=== PATIENT | female | born 1990 | race Caucasian/White ===

== ENCOUNTER 2021-07-19 17:32 | Observation (INO) | payer MEDICAID ==
[~2021-07-19] VITALS: Ht 165.1 cm; Wt 68.0 kg
[2021-07-19 17:37] VITALS: BP 155/91
[2021-07-19 18:07] LABS: APPEARANCE,URINE Clear (CLEAR); BILIRUBIN,URINE Negative (NEGATIVE); COLOR,URINE Yellow (YELLOW); GLUCOSE, URINE (UA) Negative (NEGATIVE); KETONES,URINE 40 mg/dL (NEGATIVE); LEUKOCYTE ESTERASE ,URINE Trace (NEGATIVE); NITRATE,URINE Negative (NEGATIVE); OCCULT BLOOD,URINE Negative (NEGATIVE); PH,URINE 5.5 (5.0-8.0); PROTEIN,URINE Negative (NEGATIVE); UROBILINOGEN,URINE 0.2 mg/dL (0.2-1.0)
[2021-07-19 18:35] LABS: BACTERIA,URINE Few /HPF (None Seen); RBC,URINE 0-1 /HPF (0-1); SQUAMOUS EPITHELIAL CELL,UR Rare /HPF (0-2)
[2021-07-19] MEDS ORDERED: SIMETHICONE 80 MG TAB.CHEW PO SCH (19:30)
[2021-07-19] MEDS ORDERED: PANTOPRAZOLE 40 MG TAB DR PO SCH (19:30)
== END 2021-07-19 21:25 | disposition home or self-care (01) ==
LOC: EDH 17:32 → LDH 17:51
PROVIDERS: ADMIT Obstetrics & Gynecology; ATTEND Obstetrics & Gynecology
DX: O26.892 Other specified pregnancy related conditions, second trimester (principal); R10.32 Left lower quadrant pain; Z3A.23 23 weeks gestation of pregnancy
CPT/HCPCS: 81001; G0378 ×3; G0379

== ENCOUNTER 2021-11-14 00:25 | Observation (INO) | payer MEDICAID ==
[~2021-11-14] VITALS: Ht 165.1 cm; Wt 73.5 kg
[~2021-11-14 00:25] MED LIST: ACET-2079 PO; NIFE60TA5 PO; PREN-154 PO
[2021-11-14] MEDS ORDERED: LACTATED RINGERS 1000ML 1,000 ML IV SCH (02:00)
[2021-11-14 07:36] LABS: BASOPHILS % (AUTO) 0.2 % (0.0-5.0); EOSINOPHILS % (AUTO) 0.8 % (0.0-8.0); HEMATOCRIT 41.2 % (36-48); LYMPHOCYTES % (AUTO) 17.6 % (21.0-51.0); MEAN CORPUSCULAR HEMOGLOBIN 30.5 pg (27.0-33.0); MEAN CORPUSCULAR HGB CONC 33.5 g/dL (32.0-36.0); MEAN CORPUSCULAR VOLUME 90.9 fL (79-99); NEUTROPHILS % (AUTO) 74.8 % (40.0-77.0); PLATELET COUNT (AUTO) 313 K/uL (130-400); RED BLOOD CELL COUNT(AUTO) 4.53 MIL/uL (4.00-5.50); RED CELL DISTRIBUTION WIDTH 12.8 % (11.0-15.5)
[2021-11-14 07:49] LABS: INR 0.93 (0.85-1.15); PROTHROMBIN TIME 9.3 SEC (9.6-11.6)
[2021-11-14 07:51] LABS: PARTIAL THROMBOPLASTIN TIME 26.1 SEC (26.3-35.5)
[2021-11-14] MEDS ORDERED: LABETALOL 20MG VIAL IV ONE ×2 (08:00→10:00)
[2021-11-14] MEDS ORDERED: ALPRAZOLAM 1 MG TAB PO ONE ×2 (08:00→08:30)
[2021-11-14] MEDS ORDERED: LABETALOL 20MG SYG IV ONE (08:01)
[2021-11-14 08:12] LABS: ALBUMIN 2.8 g/dL (3.5-5.0); CREATININE 0.7 mg/dL (0.5-1.5); TOTAL PROTEIN, SERUM 7.4 g/dL (6.0-8.3); URIC ACID 4.8 mg/dL (2.6-7.2)
[2021-11-14] MEDS: NIFEDIPINE ER 30 MG TAB PO SCH (08:34)
[2021-11-14] MEDS: LIDOCAINE HCL-MPF 1% 2ML VIAL IV PRN ×2 (11:28→14:43)
[2021-11-14] MEDS: POTASSIUM CHLORIDE 20MEQ/100ML 100 ML IV PRN ×2 (11:28→14:43)
[2021-11-14] MEDS: IBUPROFEN 100 MG/5 ML SUSP UDCUP PO PRN ×2 (11:38→18:40)
[2021-11-14 14:00] VITALS: BP 163/109
[2021-11-14 14:01] VITALS: BP 131/87
[2021-11-14 16:00] VITALS: BP 153/96
[2021-11-14] MEDS ORDERED: KCL 20 MEQ ERTAB PO ONE (16:30)
[2021-11-14] MEDS ORDERED: POTASSIUM CHLORIDE 10% ELIXIR 20 MEQ/15 ML UDCUP PO ONE (18:00)
[2021-11-14 19:28] VITALS: BP 132/89
[2021-11-14] MEDS: HYDROXYZINE 10 MG TABLET PO PRN (20:57)
[2021-11-14] MEDS ORDERED: ALPRAZOLAM 1 MG TAB PO SCH (21:00)
[2021-11-14] MEDS ORDERED: ALPRAZOLAM 1 MG TAB PO PRN (21:00)
[2021-11-14 23:12] VITALS: BP 159/102
[2021-11-14 23:13] VITALS: BP 142/96
[2021-11-14] MEDS ORDERED: PROPRANOLOL HCL 20 MG TAB PO SCH (23:30)
[2021-11-15 00:32] LABS: APPEARANCE,URINE CLEAR (CLEAR); BILIRUBIN,URINE NEGATIVE (NEGATIVE); COLOR,URINE YELLOW (YELLOW); GLUCOSE, URINE (UA) NEGATIVE (NEGATIVE); KETONES,URINE NEGATIVE (NEGATIVE); LEUKOCYTE ESTERASE ,URINE SMALL (NEGATIVE); NITRATE,URINE NEGATIVE (NEGATIVE); OCCULT BLOOD,URINE LARGE (NEGATIVE); PROTEIN,URINE NEGATIVE (NEGATIVE); UROBILINOGEN,URINE 0.2 mg/dL (0.2-1.0)
[2021-11-15 00:43] LABS: BACTERIA,URINE None Seen /HPF (None Seen); SQUAMOUS EPITHELIAL CELL,UR Moderate /HPF (0-2); TRANSITIONAL EPI CELLS,URINE Few /HPF (None Seen)
[2021-11-15 04:14] VITALS: BP 141/96
[2021-11-15 06:24] LABS: ALBUMIN 2.4 g/dL (3.5-5.0); CREATININE 0.7 mg/dL (0.5-1.5); POTASSIUM 3.8 mmol/L (3.5-5.1); TOTAL PROTEIN, SERUM 6.6 g/dL (6.0-8.3)
[2021-11-15 07:10] VITALS: BP 136/95
[2021-11-15] MEDS: NIFEDIPINE ER 30 MG TAB PO SCH (08:38)
[2021-11-15] MEDS: IBUPROFEN 100 MG/5 ML SUSP UDCUP PO PRN (08:38)
[2021-11-15] MEDS: HYDROXYZINE 10 MG TABLET PO PRN (09:44)
[2021-11-15 11:30] VITALS: BP 138/87
== END 2021-11-15 12:10 | disposition home or self-care (01) ==
LOC: EDH 00:25 → LDH 00:26 → WSH 14:00
PROVIDERS: ADMIT Obstetrics & Gynecology; ATTEND Obstetrics & Gynecology
DX: O99.345 Other mental disorders complicating the puerperium (principal); F41.9 Anxiety disorder, unspecified; O13.5 Gestational [pregnancy-induced] hypertension without significant proteinuria, complicating the puerperium
CPT/HCPCS: 96374; 96376; 96361; 96375; 99285; 84443; 84550; 80053 ×2; 83880; 85025; 85384; 85610; 85730; 36415 ×2; 71046; 93005; 81001; G0378 ×34; J7120; J3480 ×2; J3490 ×3; 96365

== ENCOUNTER 2021-12-30 23:43 | Emergency (ER) | payer MEDICAID ==
[~2021-12-30] VITALS: Ht 165.1 cm; Wt 70.8 kg
[2021-12-31] MEDS ORDERED: CLONIDINE HCL 0.1 MG TABLET PO ONE (00:30)
[2021-12-31 00:42] VITALS: BP 136/89
== END 2021-12-31 00:52 | disposition home or self-care (01) ==
LOC: EDH 23:43
DX: I10 Essential (primary) hypertension (principal); F41.9 Anxiety disorder, unspecified; Z98.890 Other specified postprocedural states; Z79.899 Other long term (current) drug therapy

== ENCOUNTER 2023-09-22 17:43 | Observation (INO) | payer MEDICAID ==
[~2023-09-22] VITALS: Ht 165.1 cm; Wt 82.6 kg
[2023-09-22 17:55] VITALS: BP 148/107; PULSE 104; RESP 22
[2023-09-22 18:37] LABS: APPEARANCE,URINE TURBID (CLEAR); BILIRUBIN,URINE NEGATIVE (NEGATIVE); COLOR,URINE LIGHT-YELLOW (YELLOW); GLUCOSE, URINE (UA) NEGATIVE (NEGATIVE); KETONES,URINE NEGATIVE (NEGATIVE); LEUKOCYTE ESTERASE ,URINE 25 Leu/uL (NEGATIVE); NITRATE,URINE NEGATIVE (NEGATIVE); OCCULT BLOOD,URINE NEGATIVE (NEGATIVE); PH,URINE 7.5 (5.0-8.0); PROTEIN,URINE NEGATIVE (NEGATIVE); UROBILINOGEN,URINE 0.2 mg/dL (0.2-1.0)
[2023-09-22 18:43] LABS: ADD UA MICROSCOPIC YES
[2023-09-22] MEDS: LACTATED RINGERS 1000ML IV SCH (18:45)
[2023-09-22 18:53] LABS: BACTERIA,URINE MOD /HPF (None Seen); SQUAMOUS EPITHELIAL CELL,UR MANY /HPF (0-2)
[2023-09-22 19:28] LABS: BASOPHILS # (AUTO) 0.01 K/uL (0.00-0.20); BASOPHILS % (AUTO) 0.1 % (0.0-5.0); EOSINOPHILS # (AUTO) 0.12 K/uL (0.00-0.70); EOSINOPHILS % (AUTO) 1.5 % (0.0-8.0); IMMATURE GRANULOCYTE ABSOLUTE 0.03 K/uL (0-1); LYMPHOCYTES # (AUTO) 1.8 K/uL (1.0-4.8); LYMPHOCYTES % (AUTO) 22.4 % (21.0-51.0); MEAN CORPUSCULAR HEMOGLOBIN 28.5 pg (27.0-33.0); MEAN CORPUSCULAR HGB CONC 32.6 g/dL (32.0-36.0); MEAN CORPUSCULAR VOLUME 87.4 fL (79-99); MONOCYTES # (AUTO) 0.6 K/uL (0.1-1.0); MONOCYTES % (AUTO) 7.6 % (3.0-13.0); NEUTROPHILS # (AUTO) 5.6 K/uL (1.8-7.7); PLATELET COUNT (AUTO) 259 K/uL (130-400); RED BLOOD CELL COUNT(AUTO) 3.89 MIL/uL (4.00-5.50); RED CELL DISTRIBUTION WIDTH 13.3 % (11.0-15.5); WHITE BLOOD COUNT (AUTO) 8.2 K/uL (4.8-10.8)
[2023-09-22 19:40] LABS: CREATININE 0.7 mg/dL (0.5-1.0); POTASSIUM 3.9 mmol/L (3.5-5.1)
[2023-09-22 19:42] LABS: INR <= 0.93 (0.85-1.15); PROTHROMBIN TIME 9.7 SEC (9.6-11.6)
[2023-09-22 19:44] LABS: ALBUMIN 2.5 g/dL (3.5-5.0); BILIRUBIN,TOTAL 0.2 mg/dL (0.2-1.0); PARTIAL THROMBOPLASTIN TIME 24.3 SEC (26.3-35.5); TOTAL PROTEIN, SERUM 6.6 g/dL (6.0-8.3); URIC ACID 4.1 mg/dL (2.6-7.2)
[2023-09-22 19:59] LABS: FIBRINOGEN 572 mg/dL (180-350)
== END 2023-09-22 21:08 | disposition home or self-care (01) ==
LOC: EDH 17:43 → INTOOBSV 18:06 → LDH 18:06 → OBSVTOIN 18:06
PROVIDERS: ADMIT Obstetrics & Gynecology; ATTEND Obstetrics & Gynecology
DX: O13.3 Gestational [pregnancy-induced] hypertension without significant proteinuria, third trimester (principal); Z3A.35 35 weeks gestation of pregnancy
CPT/HCPCS: 96360; 96361; 84550; 80053; 85025; 85384; 85610; 85730; 81001; 36415; 76819; G0378 ×3; G0379; J7120

== ENCOUNTER → 2024-03-10 | Outpatient (CLI) | payer MEDICAID ==
--- NOTE | 2024-03-10 09:58 | HMCIMG ---
US PELVIC NON-OB COMP REASON: rlq pain COMPARISON: None TECHNIQUE: Routine pelvic sonogram was performed. FINDINGS: Uterus is 10.9 x 4.2 x 7.0 cm. Endometrium is 9 mm. There are no endometrial or myometrial masses. There is a 2.7 cm cyst or dominant follicle left ovary. Both ovaries appear otherwise unremarkable. There are no adnexal masses. There is no free fluid in the cul-de-sac. Right lower quadrant evaluation was performed, the appendix was not separately identified. IMPRESSION: 1. 2.7 cm cyst or dominant follicle left ovary. 2. Otherwise normal pelvic sonogram.
== END | disposition home or self-care (01) ==
LOC: RAH 07:45
PROVIDERS: ATTEND Family Medicine
DX: N83.202 Unspecified ovarian cyst, left side (principal); R10.31 Right lower quadrant pain
CPT/HCPCS: 76856